=== PATIENT | male | born 1945 | race Caucasian/White ===

== ENCOUNTER 2018-05-21 00:50 | Day surgery (SDC) | payer MEDICARE, OTHER ==
[~2018-05-21] VITALS: Ht 180.3 cm; Wt 80.7 kg
[~2018-05-21 00:50] MED LIST: AMLO-111 PO; ASPI81TA94 PO; BETAMETHASONE 0.05% TP; CHOL10005 PO; ESCI10TA8 PO; GABA-549 PO; IBUP-56 PO; LEVO50TA86 PO; LISI5TAB25 PO; MELO-207 PO; METH5SOL PO
[2018-05-21] MEDS ORDERED: LIDOCAINE 1% MDV 200 MG/20 ML INFIL ONE (14:45)
[2018-05-21] MEDS ORDERED: LIDOCAINE 2% 200MG/10ML UROJET ONE (15:23)
[2018-05-21 15:40] VITALS: BP 147/86
[2018-05-21] MEDS ORDERED: LIDOCAINE 2% MDV 400MG/20ML VL ONE (15:56)
[2018-05-21] MEDS ORDERED: LIDOCAINE INFIL ONE (16:00)
[2018-05-21 16:43] VITALS: BP 142/80
[2018-05-21] MEDS ORDERED: HYDR-4309 PO (16:51)
--- NOTE | 2018-05-21 17:37 | OPERATIVE REPORT 1 ---
EVENT DATE: May 21, 2018 SURGEON: Rudy Grajeda MD ANESTHESIA: Pure local. SPINDLE MAKER: Suraj Kurtz PA-C PREOPERATIVE DIAGNOSES 1. Right index finger mass. 2. Erosive bone lesion in the distal phalanx. POSTOPERATIVE DIAGNOSES 1. Right index finger mass. 2. Erosive bone lesion in the distal phalanx. PROCEDURE PERFORMED Right index finger distal phalanx amputation with debridement of soft tissue as well as the bone for a possible infection with creation of a flap. FINDINGS The patient had come in with an infected finger with soft tissue damage associated with this and was amenable for the amputation and recreation of the flap. ESTIMATED BLOOD LOSS Minimal. DRAINS None. COMPLICATIONS None. IMPLANTS USED Not applicable. SPECIMENS The finger and the bone itself. TOURNI-COT TIME About 15 minutes. INDICATIONS AND HISTORY This patient is a 73-year-old male who had had problems with his finger going on for some time. An x-ray indicated that he had an erosive bone lesion on the distal aspect of the phalanx. We then ended up getting a CT scan which showed that it was pretty much isolated to the distal phalanx, and so we talked to him about the implications of this as well as treatment options. He wanted to go ahead with a distal phalanx amputation associated with this, and so the risks and benefits were discussed with him. We told him there was no guarantee that it makes him better, and he may continue to have problems and issues associated with it, and we may need to debride or amputate further, but would try to preserve whatever of his fingertip we could. We also talked about the implications of doing it under local in terms of the throbbing and aching pain associated with it. In addition, we also had many conversations with him regarding the pathology as well as the safeness and logistics associated with the surgical procedure. DESCRIPTION OF PROCEDURE As the patient was brought in the operating room, he was anesthetized with 2% lidocaine in a digital block, and then the right arm was prepped and draped in the usual fashion. A timeout was observed, verifying the correct patient and procedure. The Tourni-Cot was then applied to the base of the finger. Since the patient was awake, we did another verbal timeout, verifying the correct patient and procedure, and then we were able to make a standard curvilinear incision over the phalanx itself, trying to preserve some of the fingertip, and then cutting behind the fingernail itself to remove the fingernail as well as most of the distal phalanx. Once we were able to cut through all the soft tissue on both sides, I was then able to remove all the soft tissue and remove the fingertip in its entirety. I then was able to inspect the bone. There were no signs of major erosive lesions on the outside of the bone, but it did look more brittle than the proximal portion, so therefore, using bone cutters, I was then able to remove the large piece of bone and then send that off for pathology also. We then took a rongeur and smoothed off the bone, then also took a small rasp in order to smooth file it off. I then created another flap by releasing some of the soft tissue, but kept the flexor and extensor tendons intact. Once I did this, I was then able to create the flap and then close it using a 4-0 nylon in an interrupted fashion. There was one mattress stitch in the central portion, but then the rest of it was all done with interrupted simple sutures, and we were able to close the flap site without difficulty and no signs of major dog ear on either side. Tourni-Cot was then removed, and then the specimens were sent off for pathology as well as infection, and then we dressed it with Xeroform, gauze 4 x 4's, and a soft dressing. The patient was transferred to the PACU in stable condition. SATHISH
[2018-05-22] MEDS ORDERED: HYDR2TAB74 PO (04:34)
== END 2018-05-21 17:15 | disposition home or self-care (01) ==
LOC: OR 00:50
PROVIDERS: ATTEND Orthopaedic Surgery
DX: M89.9 Disorder of bone, unspecified (principal); M85.841 Other specified disorders of bone density and structure, right hand
CPT/HCPCS: 87070; 87073; 87077; 87176; 87186; 87205; 87252; 88305; 88311; J2001

== ENCOUNTER 2018-05-22 01:10 | Emergency (ER) | payer MEDICARE, OTHER ==
[~2018-05-22 01:10] MED LIST changes: -AMLO-111 PO; +AMLO-96 PO; +HYDR-4309 PO
--- NOTE | 2018-05-22 01:27 | ER Report ---
History and Physical Time Seen By MD: 01:28 Hx. of Stated Complaint: PT HAD A FINGER TIP AMPUTATION THIS AFTERNOON. DISCHARGED AROUND 3PM. PT IS HAVING BURNING PAIN FROM THE FINGER UP HIS FOREARM. PT WAS DISCHARGED WITH LORTAB, HAS TAKEN 2 DOSES WITH NO RELIEF. HPI/ROS CHIEF COMPLAINT: post-op hand pain HISTORY OF PRESENT ILLNESS: This is a 73 year old male. He had surgery on his right index finger, had amputation of distal phalanx. Now with increasing pain. He took two of the Lortab, but pain is still severe. Burning pain extending up his arm into elbow area and upper arm. No fevers or chills. Seems to worsen with laying down, some what better when upright. He had been on antibiotics prior to this procedure. Allergies: Coded Allergies: duloxetine (Verified Allergy, Intermediate, rapid heart rate, 05/13/18) fentanyl (Verified Allergy, Intermediate, rapid heart beat, 05/13/18) pregabalin (Verified Allergy, Intermediate, "bad reaction", 05/13/18) Home Meds Active Scripts Hydromorphone Hcl (DILAUDID) 2 Mg Tablet, 2 MG PO Q4H PRN for PAIN, #10 TAB 0 Refills Prov:EVE RODRIGUEZ MD 05/22/18 Reported Medications Hydrocodone Bit/Acetaminophen (NORCO 5-325 TABLET) 1 Each Tablet, 1 EACH PO Q4H PRN for PAIN, #20 TAB 05/21/18 Methadone Hcl (METHADONE HCL) 5 Mg/5 Ml Solution, 5 MG PO TID PRN for PAIN 05/13/18 Meloxicam (MELOXICAM) 15 Mg Tablet, 15 MG PO QDAY 05/13/18 Lisinopril (LISINOPRIL) 5 Mg Tablet, 5 MG PO QDAY, TAB 05/13/18 Levothyroxine Sodium (LEVOTHYROXINE SODIUM) 50 Mcg Tablet, 50 MCG PO QDAY, TAB 05/13/18 Ibuprofen (IBUPROFEN) 200 Mg Tablet, PO Q6H PRN for PAIN, TAB 05/13/18 Gabapentin (GABAPENTIN) 300 Mg Capsule, 300 MG PO BID, CAPSULE 05/13/18 Escitalopram Oxalate (ESCITALOPRAM OXALATE) 10 Mg Tablet, 10 MG PO QDAY, TAB 05/13/18 Cholecalciferol (Vitamin D3) (VITAMIN D3) 1,000 Unit Tablet, 400 UNIT PO DAILY, TAB 05/13/18 [betamthasone 0.05%] No Conflict Check, TP BID 05/13/18 Aspirin (ASPIRIN) 81 Mg Tab.chew, 81 MG PO QDAY, TAB.CHEW 05/13/18 Amlodipine Besylate (AMLODIPINE BESYLATE) 5 Mg Tablet, 1 TAB PO QDAY, TAB 05/13/18 Reviewed Nurses Notes: Yes Hx Smoking: Yes (15-20 years 1 ppd) Smoking Status: Former Smoker Hx Substance Use Disorder: No Hx Alcohol Use: No Constitutional Vital Sign - Last 24 Hours 05/22/18 05/22/18 05/22/18 05/22/18 01:16 01:16 01:25 01:30 Temp 98.2 Pulse 67 79 Resp 18 B/P (MAP) 151/85 (107) 151/85 126/71 (89) Pulse Ox 93 95 O2 Delivery Room Air Physical Exam General: Alert, no acute distress. Afebrile. Musculoskeletal: The dressing is clean, dry and intact. No signs of redness around the dressing. Did not take the dressing off as it was just applied after surgery 12 hours ago. Not able to reproduce the tenderness with palpation of the hand/arm, but the finger is tender at the MCP joint. Skin: No redness or swelling noted. Cardiovascular: Good pulses and cap refill. Neuro: Normal sensation or skin. Medical Decision Making EKG/Imaging Imaging Venous Doppler ultrasound right upper extremity Indication: Right arm pain. Finger surgery earlier today. Comparison: None available. Findings: There is normal compressibility and blood flow of the right internal jugular vein. There is normal blood flow to the right subclavian vein. There is normal compressibility and blood flow identified within the right axillary vein, brachial veins, basilic and cephalic veins. IMPRESSION: 1. No evidence of deep venous thrombosis of the right upper extremity. Report Dictated By: Sridhar Varma at 05/22/2018 4:21 AM ED Course/Re-evaluation ED Course Gave Percocet 5/325 x2 for pain, with some improvement noted. Venous ultrasound negative. No signs of infection. Further treatment with Dilaudid 2mg tablets, 1/2 tablet every 4hours for pain. Recommended calling and touching base with Dr. Grajeda this morning prior to returning home to [place]. Decision to Disposition Date: May 22, 2018 Decision to Disposition Time: 04:32 Depart Departure Latest Vital Signs Vital Signs Date Time Temp Pulse Resp B/P (MAP) Pulse Ox O2 Delivery O2 Flow Rate FiO2 05/22/18 01:30 126/71 (89) 05/22/18 01:25 79 95 05/22/18 01:16 98.2 18 Room Air Impression: Primary Impression: Postoperative pain of extremity Condition: Improved Disposition: HOME OR SELF-CARE New Scripts Hydromorphone Hcl (DILAUDID) 2 Mg Tablet 2 MG PO Q4H PRN for PAIN, #10 TAB 0 Refills Prov: EVE RODRIGUEZ MD 05/22/18 Additional Instructions: Post-operative hand and arm pain. No sign of blood clots. No sign of infection at this time. Will provide the take home pack of Dilaudid for pain, as well as a prescription you can fill. Take 1/2 or 1 tablet every 4 hours as needed for pain. Please check in with Dr. Grajeda today prior to returning home to [place] so he can re-evaluate as needed. Please address the question of continuation of antibiotics with Dr. Grajeda as well. EVE RODRIGUEZ MD May 22, 2018 01:27
[2018-05-22 01:30] VITALS: BP 126/71
[2018-05-22] MEDS ORDERED: HYDROmorphone 2 MG TAB TH 2 TAB/BOTTLE PO ONE (03:15)
--- NOTE | 2018-05-22 04:26 | RADIOLOGY IMAGING REPORT ---
FACILITY: [facility] - [place] PATIENT NAME: Rogelio Stauffer : 1945 MR: [id number] V: [id number] EXAM DATE: ORDERING PHYSICIAN: EVE RODRIGUEZ TECHNOLOGIST: Location: [facility] - [place] Patient: Rogelio Stauffer : 1945 Visit/Account:[id number] Date of Sevice: 05/22/2018 Venous Doppler ultrasound right upper extremity Indication: Right arm pain. Finger surgery earlier today. Comparison: None available. Findings: There is normal compressibility and blood flow of the right internal jugular vein. There is normal blood flow to the right subclavian vein. There is normal compressibility and blood flow identified within the right axillary vein, brachial ve ins, basilic and cephalic veins. IMPRESSION: 1. No evidence of deep venous thrombosis of the right upper extremity. Report Dictated By: Sridhar Varma at 05/22/2018 4:21 AM Report E-Signed By: Sridhar Varma at 05/22/2018 4:23 AM WSN:[id number]
[2018-05-22] MEDS ORDERED: HYDR2TAB74 PO (04:34)
== END 2018-05-22 04:55 | disposition home or self-care (01) ==
LOC: ER 01:51
DX: M79.644 Pain in right finger(s) (principal)
CPT/HCPCS: 93970; 99284; A9270